=== PATIENT | male | born 1950 | race Caucasian/White ===

== ENCOUNTER 2021-09-28 21:01 | Emergency (ER) | payer MEDICARE ==
[2021-09-29] MEDS ORDERED: Morphine 4 MG/ML VIAL ONE (01:23)
[2021-09-29] MEDS ORDERED: Ondansetron PF 4 MG/2 ML Vial ONE (01:33)
[2021-09-29] MEDS ORDERED: Ketorolac Tromethamine 30 MG/ML VIAL ONE (02:39)
== END 2021-09-29 02:44 ==
LOC: ERS 21:01
DX: S72.114A Nondisplaced fracture of greater trochanter of right femur, initial encounter for closed fracture (principal); I71.4 Abdominal aortic aneurysm, without rupture; I10 Essential (primary) hypertension; F17.210 Nicotine dependence, cigarettes, uncomplicated; Z79.899 Other long term (current) drug therapy; W19.XXXA Unspecified fall, initial encounter
CPT/HCPCS: 70450; 72125; 72170; 72192; 96372; 96374; 96375; J1885; J2270; J2405

== ENCOUNTER 2022-01-19 11:45 | Outpatient (CLI) | payer MEDICARE | END 2022-01-19 11:46 | disposition home or self-care (01) | LOC: SCSRAD 11:45 | PROVIDERS: ATTEND Family Medicine | DX: S72.114A Nondisplaced fracture of greater trochanter of right femur, initial encounter for closed fracture (principal) ==